=== PATIENT | male | born 1960 | race African-American/Black ===

== ENCOUNTER 2021-05-20 15:01 | Inpatient (IN) ==
[2021-05-20] MEDS ORDERED: MORPHINE 2 MG/1 ML SYRINGE IV STA (15:20)
[2021-05-20] MEDS ORDERED: NITROGLYCERIN 2% OINT 1 INCH/GM PACK TOP STA (15:20)
[2021-05-20] MEDS ORDERED: ALBUTEROL 2.5 MG/3 ML NEB RESP TX STA (15:51)
[2021-05-20 16:23] LABS: ABG Base Excess -15.5 MMOL/L (-2.5-2.5); ABG HCO3 12.4 MMOL/L (20-26); ABG Oxygen Saturation 95.4 % (95-100); ABG PO2 92.9 MM HG (80-95); ABG TCO2 10.9 MMOL/L (23-27)
[2021-05-20 16:29] LABS: ABG PH 7.203 (7.35-7.45)
[2021-05-20] MEDS ORDERED: FUROSEMIDE 100 MG/10 ML VIAL ONE (16:47)
[2021-05-20] MEDS ORDERED: ETOMIDATE 20 MG/10 ML VIAL IV ONE ×2 (16:52→17:26)
[2021-05-20] MEDS ORDERED: ROCURONIUM 100 MG/10 ML VIAL IV ONE ×3 (16:53→17:27)
[2021-05-20] MEDS ORDERED: SUCCINYLCHOLINE 200 MG/10 ML VIAL ONE (16:53)
[2021-05-20] MEDS ORDERED: FUROSEMIDE INJ 160 MG in SODIUM CHLORIDE 0.9% 50 ML IV STA (17:06)
[2021-05-20 17:07] LABS: Calcium 7.2 MG/DL (8.5-10.1); Osmolality,Calculated 304.2 MOS/KG (273-304)
[2021-05-20] MEDS ORDERED: ALBUTEROL 2.5 MG/3 ML NEB RESP TX PRN (17:07)
[2021-05-20] MEDS ORDERED: ONDANSETRON 4 MG/2 ML VIAL IV PRN (17:07)
[2021-05-20 17:21] LABS: Potassium 5.8 MMOL/L (3.5-5.1)
[2021-05-20 17:22] LABS: Barbiturates Screen,Urine Negative (Negative); Benzodiazepines Screen,Urine Negative (Negative); Cannabinoid Screen,Urine Positive (Negative); Opiate Screen,Urine Positive (Negative); Phencyclidine Screen,Urine Negative (Negative)
[2021-05-20] MEDS ORDERED: SODIUM BICARBONATE 50 MEQ/50 ML VIAL IV ONE ×3 (17:30→19:39)
[2021-05-20] MEDS ORDERED: GLUCAGON 1 MG VIAL IM PRN (17:32)
[2021-05-20] MEDS ORDERED: hydrALAZINE 20 MG/1 ML VIAL IV PRN (17:36)
[2021-05-20] MEDS ORDERED: DEXTROSE 50% 25 GM/50 ML SYRINGE IV PRN (17:36)
[2021-05-20] MEDS: INSULIN LISPRO 100 UNIT/ML SUBCUT SCH (18:00)
[2021-05-20] MEDS: HEPARIN 5,000 UNIT/1 ML VIAL SUBCUT SCH (18:01)
[2021-05-20] MEDS: PANTOPRAZOLE 40 MG VIAL IV SCH (18:01)
[2021-05-20 18:15] LABS: Basophils % 0.1 % (0.0-0.8); Hematocrit 23.6 VOL% (42.0-52.0); Hemoglobin 7.7 GM/DL (14.0-18.0); Immature Granulocytes % 1.1 %; Immature Granulocytes Absolute 0.16 #; Lymphocytes # 0.5 10*3/uL (1.4-4.0); Lymphocytes % 3.5 % (21.2-54.2); Mean Corpuscular HGB Conc 32.6 GM/DL (32-36); Mean Corpuscular Volume 94.8 FL (87-102); Mean Platelet Volume 10.3 FL (9.6-12.0); Monocytes % 2.4 % (1.7-12.7); Neutrophils % 92.9 % (38.7-73.9); Platelet Count 156 T/CUMM (130-400); Red Blood Count 2.49 MC/CUMM (3.8-5.5); Red Cell Distribution Width 13.2 % (9.3-17.3); White Blood Count 13.9 T/CUMM (4-12)
[2021-05-20 18:19] LABS: Lymphocytes 3 % (20-55); Macrocytosis 1+; Segmented Neutrophils 94 % (50-85); Total Cells Counted 100
[2021-05-20 18:20] LABS: Basophilic Stippling 1+; Polychromasia Few; Toxic Granulation 1+
[2021-05-20 18:21] LABS: Platelet Estimate Normal
[2021-05-20 18:42] LABS: Allen Test Positive; Pt O2 Delivery Device Ventilator
[2021-05-20 18:43] LABS: ABG Base Excess -13.7 MMOL/L (-2.5-2.5); ABG HCO3 16.1 MMOL/L (20-26); ABG Oxygen Saturation 97.8 % (95-100); ABG PCO2 59.2 MM HG (35-48); ABG PO2 167.9 MM HG (80-95); ABG TCO2 17.9 MMOL/L (23-27)
[2021-05-20 18:45] LABS: ABG PH 7.052 (7.35-7.45)
[2021-05-20] MEDS ORDERED: SODIUM POLYSTYRENE SULFATE 15 GM/60 ML BOTTLE PO ONE (19:18)
[2021-05-20 19:21] LABS: Bilirubin,Urine Negative (Negative); Blood, Urine Moderate mg/dL (Negative); Glucose,Urine (UA) 50 mg/dL (Negative); Hyaline Casts,Urine 1 /LPF (0-3); Ketones,Urine 5 mg/dL (Negative); Mucus,Urine Occasional /LPF (Occasional); Nitrite,Urine Negative (Negative); Protein,Urine >=500 MG/DL; RBC,Urine 13 /HPF (0-4); Squamous Epithelial Cell,Urine Occasional /HPF (0-10); Urine Appearance Slightly Hazy (Clear); Urine Color Yellow (Yellow); Urine Specific Gravity 1.013 (1.001-1.035); Urine Urobilinogen < 2.0 EU/DL (0.2-1.0)
[2021-05-20 19:41] LABS: Hepatitis B Core IgM Quant 0.12 Index; Hepatitis B Surface Ag Quant < 0.10 Index; Hepatitis B Surface Ag Result Non-Reactive (NonReactive); Hepatitis C Virus Ab Quant > 11.00 Index; Hepatitis C Virus Ab Result Reactive (NonReactive)
[2021-05-20 20:27] LABS: ABG Base Excess -10.4 MMOL/L (-2.5-2.5); ABG HCO3 16.1 MMOL/L (20-26); ABG Oxygen Saturation 99.2 % (95-100); ABG PCO2 57.2 MM HG (35-48); ABG TCO2 18.3 MMOL/L (23-27)
[2021-05-20 20:28] LABS: ABG PH 7.124 (7.35-7.45)
[2021-05-20] MEDS: ATORVASTATIN 40 MG TABLET PO SCH (20:55)
[2021-05-20 21:17] LABS: Calcium 7.2 MG/DL (8.5-10.1); Potassium 5.4 MMOL/L (3.5-5.1)
[2021-05-21] MEDS: INSULIN LISPRO 100 UNIT/ML SUBCUT SCH ×5 (00:23→23:43)
[2021-05-21 01:20] LABS: ABG Base Excess -6.9 MMOL/L (-2.5-2.5); ABG HCO3 18.7 MMOL/L (20-26); ABG PCO2 36.1 MM HG (35-48); ABG TCO2 17.7 MMOL/L (23-27)
[2021-05-21 01:54] LABS: INR 1.1; PT Patient Result 12.2 SECS (10.5-12.0)
[2021-05-21] MEDS: HEPARIN 5,000 UNIT/1 ML VIAL SUBCUT SCH ×3 (02:48→18:10)
[2021-05-21 03:51] LABS: Basophils % 0.1 % (0.0-0.8); Hematocrit 18.6 VOL% (42.0-52.0); Immature Granulocytes % 0.7 %; Immature Granulocytes Absolute 0.06 #; Lymphocytes # 0.9 10*3/uL (1.4-4.0); Lymphocytes % 9.6 % (21.2-54.2); Mean Corpuscular HGB Conc 33.3 GM/DL (32-36); Mean Corpuscular Volume 94.4 FL (87-102); Mean Platelet Volume 10.2 FL (9.6-12.0); Monocytes % 5.4 % (1.7-12.7); Neutrophils % 84.2 % (38.7-73.9); Platelet Count 139 T/CUMM (130-400); Red Blood Count 1.97 MC/CUMM (3.8-5.5); Red Cell Distribution Width 13.2 % (9.3-17.3); White Blood Count 8.9 T/CUMM (4-12)
[2021-05-21 03:53] LABS: Hemoglobin 6.2 GM/DL (14.0-18.0)
[2021-05-21 04:11] LABS: Calcium 7.2 MG/DL (8.5-10.1); Osmolality,Calculated 314.4 MOS/KG (273-304); Potassium 4.6 MMOL/L (3.5-5.1); Risk Ratio 2.13; VLDL Cholesterol 26.4 MG/DL
[2021-05-21 04:20] LABS: % Iron Saturation 8.7 % (18-50)
[2021-05-21 04:26] LABS: Albumin 2.2 G/DL (3.4-5.0); Bilirubin,Direct 0.22 MG/DL (0.0-0.20); Bilirubin,Indirect 0.5 MG/DL (0.0-1.0); Bilirubin,Total 0.7 MG/DL (0.20-1.00); Thyroid Stimulating Hormone 1.6 uIU/ml (0.358-3.74); Total Protein 6.3 G/DL (6.4-8.2)
[2021-05-21] MEDS: LEVOTHYROXINE 50 MCG TABLET PO SCH (06:18)
[2021-05-21] MEDS ORDERED: SODIUM CHLORIDE 0.9% 1,000 ML IV PRN (08:32)
[2021-05-21] MEDS ORDERED: INFLUENZA VIRUS VACCINE 0.5 ML SYRINGE IM ONE (09:00)
[2021-05-21] MEDS ORDERED: SODIUM ZIRCONIUM CYCLOSILICATE 10 GM PACK PO SCH (09:00)
[2021-05-21] MEDS ORDERED: amLODIPine 10 MG TABLET PO SCH (09:00)
[2021-05-21] MEDS ORDERED: HEPARIN 10,000 UNIT/10 ML VIAL IV PRN (14:15)
[2021-05-21] MEDS: PANTOPRAZOLE 40 MG VIAL IV SCH (18:10)
[2021-05-21] MEDS: ATORVASTATIN 40 MG TABLET PO SCH (20:49)
[2021-05-22] MEDS: HEPARIN 5,000 UNIT/1 ML VIAL SUBCUT SCH ×3 (02:52→17:27)
[2021-05-22 03:48] LABS: ABG Base Excess -3.1 MMOL/L (-2.5-2.5); ABG HCO3 21.8 MMOL/L (20-26); ABG Oxygen Saturation 99.5 % (95-100); ABG PCO2 37.2 MM HG (35-48); ABG PH 7.373 (7.35-7.45)
[2021-05-22 05:09] LABS: Basophils % 0.2 % (0.0-0.8); Eosinophils # 0.1 10*3/uL (0.0-0.87); Eosinophils % 0.4 % (0.00-10.9); Hematocrit 25.9 VOL% (42.0-52.0); Immature Granulocytes % 0.4 %; Immature Granulocytes Absolute 0.05 #; Lymphocytes # 1.9 10*3/uL (1.4-4.0); Lymphocytes % 16.7 % (21.2-54.2); Mean Corpuscular HGB Conc 33.2 GM/DL (32-36); Mean Corpuscular Volume 91.8 FL (87-102); Monocytes % 7.5 % (1.7-12.7); Neutrophils % 74.8 % (38.7-73.9); Platelet Count 181 T/CUMM (130-400); Red Cell Distribution Width 13.5 % (9.3-17.3); White Blood Count 11.4 T/CUMM (4-12)
[2021-05-22 05:11] LABS: Hemoglobin 8.6 GM/DL (14.0-18.0); Red Blood Count 2.82 MC/CUMM (3.8-5.5)
[2021-05-22 05:31] LABS: Calcium 7.5 MG/DL (8.5-10.1); Potassium 4.4 MMOL/L (3.5-5.1)
[2021-05-22] MEDS: INSULIN LISPRO 100 UNIT/ML SUBCUT SCH (05:40)
[2021-05-22] MEDS: LEVOTHYROXINE 50 MCG TABLET PO SCH (06:11)
[2021-05-22] MEDS: PANTOPRAZOLE 40 MG TABLET PO SCH (09:38)
[2021-05-22] MEDS: lisinopriL 5 MG TABLET PO SCH (09:38)
[2021-05-22] MEDS: carvediloL 12.5 MG TABLET PO SCH ×2 (09:38→20:27)
[2021-05-22] MEDS ORDERED: LIDOCAINE 1%/EPI INJ 20 ML VIAL ONE (10:17)
[2021-05-22] MEDS ORDERED: BUPIVACAINE MPF 0.25% 30 ML VIAL ONE (10:17)
[2021-05-22] MEDS: ATORVASTATIN 40 MG TABLET PO SCH (20:27)
[2021-05-23] MEDS: HEPARIN 5,000 UNIT/1 ML VIAL SUBCUT SCH ×3 (01:05→17:43)
[2021-05-23 04:47] LABS: Basophils % 0.2 % (0.0-0.8); Eosinophils # 0.1 10*3/uL (0.0-0.87); Eosinophils % 1.5 % (0.00-10.9); Hematocrit 26.3 VOL% (42.0-52.0); Hemoglobin 8.6 GM/DL (14.0-18.0); Immature Granulocytes % 0.3 %; Immature Granulocytes Absolute 0.03 #; Lymphocytes # 1.9 10*3/uL (1.4-4.0); Lymphocytes % 20.8 % (21.2-54.2); Mean Corpuscular HGB Conc 32.7 GM/DL (32-36); Neutrophils % 68.2 % (38.7-73.9); Platelet Count 163 T/CUMM (130-400); Red Blood Count 2.86 MC/CUMM (3.8-5.5); Red Cell Distribution Width 13.2 % (9.3-17.3); White Blood Count 9.2 T/CUMM (4-12)
[2021-05-23 05:17] LABS: Calcium 7.7 MG/DL (8.5-10.1); Osmolality,Calculated 295.8 MOS/KG (273-304)
[2021-05-23] MEDS: LEVOTHYROXINE 50 MCG TABLET PO SCH (06:08)
[2021-05-23] MEDS ORDERED: BUPIVACAINE 0.5% 50 ML VIAL ONE (08:05)
[2021-05-23] MEDS ORDERED: LIDOCAINE 1%/EPI INJ 20 ML VIAL ONE (08:06)
[2021-05-23] MEDS ORDERED: LIDOCAINE 2% 5 ML VIAL ONE (08:44)
[2021-05-23] MEDS ORDERED: propofoL 200 MG/20 ML VIAL IV ONE (08:44)
[2021-05-23] MEDS ORDERED: SODIUM CHLORIDE 0.9% 100 ML IV ONE (08:44)
[2021-05-23] MEDS ORDERED: ONDANSETRON 4 MG/2 ML VIAL ONE (08:44)
[2021-05-23] MEDS ORDERED: TISSUE ADHESIVE 1 EACH APPLICATOR TOP ONE (10:31)
[2021-05-23] MEDS ORDERED: ETOMIDATE 40 MG/20 ML VIAL IV ONE (10:42)
[2021-05-23] MEDS: carvediloL 12.5 MG TABLET PO SCH ×2 (12:20→21:00)
[2021-05-23] MEDS: lisinopriL 5 MG TABLET PO SCH (12:20)
[2021-05-23] MEDS: PANTOPRAZOLE 40 MG TABLET PO SCH (12:20)
[2021-05-23] MEDS ORDERED: EPOETIN ALFA-EPBX 2,000 UNIT/ML VIAL IV PRN (13:09)
[2021-05-23] MEDS ORDERED: SODIUM CHLORIDE 0.9% IV SCH (13:30)
[2021-05-23] MEDS ORDERED: IRON SUCROSE 100 MG/5 ML VIAL IV SCH (13:30)
[2021-05-23] MEDS ORDERED: [UNRECOGNIZED DRUG - OTHER] IV SCH (13:30)
[2021-05-23] MEDS ORDERED: ACETAMINOPHEN 325 MG TABLET PO PRN (20:12)
[2021-05-23] MEDS: ATORVASTATIN 40 MG TABLET PO SCH (21:00)
[2021-05-24] MEDS: HEPARIN 5,000 UNIT/1 ML VIAL SUBCUT SCH ×3 (00:13→17:03)
[2021-05-24] MEDS: LEVOTHYROXINE 50 MCG TABLET PO SCH (05:38)
[2021-05-24 05:48] LABS: Basophils % 0.4 % (0.0-0.8); Eosinophils # 0.2 10*3/uL (0.0-0.87); Eosinophils % 2.4 % (0.00-10.9); Hematocrit 26.9 VOL% (42.0-52.0); Hemoglobin 9.1 GM/DL (14.0-18.0); Immature Granulocytes % 0.7 %; Immature Granulocytes Absolute 0.06 #; Lymphocytes # 1.7 10*3/uL (1.4-4.0); Lymphocytes % 18.9 % (21.2-54.2); Mean Corpuscular HGB Conc 33.8 GM/DL (32-36); Mean Corpuscular Volume 93.1 FL (87-102); Mean Platelet Volume 10.2 FL (9.6-12.0); Monocytes % 10.5 % (1.7-12.7); Neutrophils % 67.1 % (38.7-73.9); Platelet Count 164 T/CUMM (130-400); Red Blood Count 2.89 MC/CUMM (3.8-5.5); White Blood Count 9.2 T/CUMM (4-12)
[2021-05-24 06:06] LABS: Calcium 8.2 MG/DL (8.5-10.1); Osmolality,Calculated 280.1 MOS/KG (273-304); Potassium 3.9 MMOL/L (3.5-5.1)
[2021-05-24] MEDS: carvediloL 12.5 MG TABLET PO SCH ×2 (11:24→21:18)
[2021-05-24] MEDS: lisinopriL 5 MG TABLET PO SCH (11:24)
[2021-05-24] MEDS: PANTOPRAZOLE 40 MG TABLET PO SCH (11:24)
[2021-05-24] MEDS: ATORVASTATIN 40 MG TABLET PO SCH (21:18)
[2021-05-24] MEDS: lisinopriL 10 MG TABLET PO SCH (21:18)
[2021-05-25] MEDS: HEPARIN 5,000 UNIT/1 ML VIAL SUBCUT SCH ×3 (00:35→16:05)
[2021-05-25 05:18] LABS: Basophils % 0.4 % (0.0-0.8); Eosinophils # 0.3 10*3/uL (0.0-0.87); Eosinophils % 4.1 % (0.00-10.9); Hematocrit 26.6 VOL% (42.0-52.0); Hemoglobin 8.8 GM/DL (14.0-18.0); Immature Granulocytes % 0.8 %; Immature Granulocytes Absolute 0.06 #; Lymphocytes # 1.9 10*3/uL (1.4-4.0); Lymphocytes % 23.8 % (21.2-54.2); Mean Corpuscular HGB Conc 33.1 GM/DL (32-36); Mean Corpuscular Volume 92.7 FL (87-102); Mean Platelet Volume 10.4 FL (9.6-12.0); Monocytes % 13.3 % (1.7-12.7); Neutrophils % 57.6 % (38.7-73.9); Platelet Count 168 T/CUMM (130-400); Red Blood Count 2.87 MC/CUMM (3.8-5.5); Red Cell Distribution Width 12.9 % (9.3-17.3); White Blood Count 7.9 T/CUMM (4-12)
[2021-05-25 05:41] LABS: Calcium 8.2 MG/DL (8.5-10.1); Osmolality,Calculated 282.2 MOS/KG (273-304)
[2021-05-25] MEDS: LEVOTHYROXINE 50 MCG TABLET PO SCH (06:45)
[2021-05-25] MEDS ORDERED: FERRIC GLUCONATE COMPLEX 125 MG in SODIUM CHLORIDE 0.9% 100 ML IV SCH (08:00)
[2021-05-25] MEDS: lisinopriL 10 MG TABLET PO SCH ×2 (08:36→22:24)
[2021-05-25] MEDS: carvediloL 12.5 MG TABLET PO SCH ×2 (08:36→22:25)
[2021-05-25] MEDS: PANTOPRAZOLE 40 MG TABLET PO SCH (08:36)
[2021-05-25] MEDS: ATORVASTATIN 40 MG TABLET PO SCH (22:24)
[2021-05-26] MEDS: HEPARIN 5,000 UNIT/1 ML VIAL SUBCUT SCH ×3 (00:55→18:14)
[2021-05-26] MEDS: LEVOTHYROXINE 50 MCG TABLET PO SCH (06:28)
[2021-05-26] MEDS: lisinopriL 10 MG TABLET PO SCH (08:38)
[2021-05-26] MEDS: carvediloL 12.5 MG TABLET PO SCH ×2 (08:38→22:48)
[2021-05-26] MEDS: PANTOPRAZOLE 40 MG TABLET PO SCH (08:38)
[2021-05-26] MEDS: lisinopriL 20 MG TABLET PO SCH (22:48)
[2021-05-26] MEDS: ATORVASTATIN 40 MG TABLET PO SCH (22:48)
[2021-05-27] MEDS: HEPARIN 5,000 UNIT/1 ML VIAL SUBCUT SCH ×3 (01:11→17:36)
[2021-05-27] MEDS: LEVOTHYROXINE 50 MCG TABLET PO SCH (06:56)
[2021-05-27] MEDS: PANTOPRAZOLE 40 MG TABLET PO SCH (09:53)
[2021-05-27] MEDS: carvediloL 12.5 MG TABLET PO SCH ×2 (09:54→21:46)
[2021-05-27] MEDS: lisinopriL 20 MG TABLET PO SCH ×2 (11:00→21:46)
[2021-05-27] MEDS: ATORVASTATIN 40 MG TABLET PO SCH (21:46)
[2021-05-28] MEDS: HEPARIN 5,000 UNIT/1 ML VIAL SUBCUT SCH ×3 (01:19→16:40)
[2021-05-28] MEDS: LEVOTHYROXINE 50 MCG TABLET PO SCH ×2 (05:26→05:49)
[2021-05-28] MEDS: carvediloL 12.5 MG TABLET PO SCH ×2 (13:20→22:24)
[2021-05-28] MEDS: lisinopriL 20 MG TABLET PO SCH ×2 (13:20→22:24)
[2021-05-28] MEDS: PANTOPRAZOLE 40 MG TABLET PO SCH (13:20)
[2021-05-28] MEDS: ATORVASTATIN 40 MG TABLET PO SCH (22:24)
[2021-05-29] MEDS: HEPARIN 5,000 UNIT/1 ML VIAL SUBCUT SCH ×3 (01:45→17:39)
[2021-05-29 04:54] LABS: Basophils % 0.4 % (0.0-0.8); Eosinophils # 0.3 10*3/uL (0.0-0.87); Eosinophils % 3.4 % (0.00-10.9); Hematocrit 25.4 VOL% (42.0-52.0); Hemoglobin 8.3 GM/DL (14.0-18.0); Immature Granulocytes % 2.3 %; Immature Granulocytes Absolute 0.19 #; Lymphocytes # 2.2 10*3/uL (1.4-4.0); Mean Corpuscular HGB Conc 32.7 GM/DL (32-36); Mean Corpuscular Volume 92.4 FL (87-102); Mean Platelet Volume 10.7 FL (9.6-12.0); Monocytes % 14.2 % (1.7-12.7); NRBC # 0.02 10*3/uL; Neutrophils % 53.7 % (38.7-73.9); Platelet Count 169 T/CUMM (130-400); Red Blood Count 2.75 MC/CUMM (3.8-5.5); Red Cell Distribution Width 13.3 % (9.3-17.3); White Blood Count 8.4 T/CUMM (4-12)
[2021-05-29 05:16] LABS: Calcium 8.1 MG/DL (8.5-10.1); Osmolality,Calculated 268.1 MOS/KG (273-304); Potassium 4.1 MMOL/L (3.5-5.1)
[2021-05-29] MEDS: LEVOTHYROXINE 50 MCG TABLET PO SCH (05:56)
[2021-05-29] MEDS: lisinopriL 20 MG TABLET PO SCH ×2 (09:54→22:08)
[2021-05-29] MEDS: PANTOPRAZOLE 40 MG TABLET PO SCH (09:54)
[2021-05-29] MEDS: carvediloL 12.5 MG TABLET PO SCH ×2 (09:55→22:08)
[2021-05-29] MEDS ORDERED: SODIUM CHLORIDE 0.9% 500 ML IV ONE (11:21)
[2021-05-29] MEDS ORDERED: TOLVAPTAN 15 MG TABLET PO ONE (13:00)
[2021-05-29 14:16] LABS: Hepatitis B Surface Ab Result Reactive (NonReactive)
[2021-05-29] MEDS: ATORVASTATIN 40 MG TABLET PO SCH (22:08)
[2021-05-30] MEDS: HEPARIN 5,000 UNIT/1 ML VIAL SUBCUT SCH (01:33)
[2021-05-30 05:12] LABS: Basophils % 0.3 % (0.0-0.8); Eosinophils # 0.2 10*3/uL (0.0-0.87); Eosinophils % 2.5 % (0.00-10.9); Hematocrit 24.3 VOL% (42.0-52.0); Hemoglobin 7.8 GM/DL (14.0-18.0); Immature Granulocytes Absolute 0.15 #; Lymphocytes # 1.9 10*3/uL (1.4-4.0); Mean Corpuscular HGB Conc 32.1 GM/DL (32-36); Mean Corpuscular Volume 93.1 FL (87-102); Mean Platelet Volume 10.8 FL (9.6-12.0); Neutrophils % 57.2 % (38.7-73.9); Platelet Count 174 T/CUMM (130-400); Red Blood Count 2.61 MC/CUMM (3.8-5.5); Red Cell Distribution Width 13.4 % (9.3-17.3); White Blood Count 7.5 T/CUMM (4-12)
[2021-05-30 05:48] LABS: Calcium 7.8 MG/DL (8.5-10.1); Osmolality,Calculated 281.2 MOS/KG (273-304); Potassium 4.4 MMOL/L (3.5-5.1)
[2021-05-30] MEDS: LEVOTHYROXINE 50 MCG TABLET PO SCH (05:56)
[2021-05-30] MEDS ORDERED: EPOETIN ALFA-EPBX 2,000 UNIT/ML VIAL SUBCUT ONE (08:30)
[2021-05-30] MEDS: PANTOPRAZOLE 40 MG TABLET PO SCH (11:15)
[2021-05-30] MEDS: carvediloL 12.5 MG TABLET PO SCH (11:15)
[2021-05-30] MEDS: lisinopriL 20 MG TABLET PO SCH (11:15)
[2021-05-30 11:28] VITALS: BP 145/64
== END 2021-05-30 14:31 | disposition home or self-care (01) | DRG 673 ==
LOC: N.ED 15:01 → N.ICU 17:07 → SUATTDRO 17:07 → N.ICU 17:28 → N.5E 05-22 15:44
PROVIDERS: ADMIT Internal Medicine; ATTEND Internal Medicine

== ENCOUNTER 2021-07-02 01:21 | Inpatient (IN) ==
[2021-07-02 02:54] LABS: ABG Base Excess -4.2 MMOL/L (-2.5-2.5); ABG HCO3 20.7 MMOL/L (20-26); ABG Oxygen Saturation 78.3 % (95-100); ABG PCO2 32.5 MM HG (35-48); ABG PH 7.398 (7.35-7.45); ABG PO2 49.9 MM HG (80-95); ABG TCO2 19.1 MMOL/L (23-27)
[2021-07-02 03:27] LABS: Basophils % 0.2 % (0.0-0.8); Hematocrit 21.4 VOL% (42.0-52.0); Hemoglobin 6.7 GM/DL (14.0-18.0); Immature Granulocytes % 0.6 %; Immature Granulocytes Absolute 0.08 #; Lymphocytes # 0.5 10*3/uL (1.4-4.0); Lymphocytes % 3.8 % (21.2-54.2); Mean Corpuscular HGB Conc 31.3 GM/DL (32-36); Mean Corpuscular Volume 93.9 FL (87-102); Mean Platelet Volume 12.8 FL (9.6-12.0); Neutrophils % 93.4 % (38.7-73.9); Red Blood Count 2.28 MC/CUMM (3.8-5.5); Red Cell Distribution Width 16.4 % (9.3-17.3); White Blood Count 12.7 T/CUMM (4-12)
[2021-07-02 03:34] LABS: Bilirubin,Urine Negative (Negative); Blood, Urine Moderate mg/dL (Negative); Glucose,Urine (UA) 50 mg/dL (Negative); Ketones,Urine Negative (Negative); Nitrite,Urine Negative (Negative); Protein,Urine >=500 MG/DL; RBC,Urine 166 /HPF (0-4); Squamous Epithelial Cell,Urine Occasional /HPF (0-10); Urine Appearance CLOUDY (Clear); Urine Color Amber (Yellow); Urine Specific Gravity 1.017 (1.001-1.035); Urine Urobilinogen < 2.0 EU/DL (<2.0)
[2021-07-02] MEDS ORDERED: cefTRIAXone 1,000 MG in SODIUM CHLORIDE 0.9% 100 ML IV STA (03:35)
[2021-07-02 03:38] LABS: INR 1.4; PT Patient Result 15.1 SECS (10.5-12.0); Partial Thromboplastin Time 34.7 SECS (23.8-32.1); Platelet Count 98 T/CUMM (130-400)
[2021-07-02 03:46] LABS: Band Neutrophils 3 % (0-10); Hypochromia 1+; Lymphocytes 2 % (20-55); Microcytosis 1+; Ovalocytes Slight; Segmented Neutrophils 92 % (50-85); Total Cells Counted 100
[2021-07-02] MEDS ORDERED: LACTATED RINGERS 500 ML IV ONE (03:46)
[2021-07-02 03:59] LABS: Albumin 1.5 G/DL (3.4-5.0); Bilirubin,Total 1.8 MG/DL (0.20-1.00); Osmolality,Calculated 332.1 MOS/KG (273-304); Total Protein 6.5 G/DL (6.4-8.2)
[2021-07-02 04:08] LABS: Barbiturates Screen,Urine Negative (Negative); Benzodiazepines Screen,Urine Positive (Negative); Cannabinoid Screen,Urine Negative (Negative); Opiate Screen,Urine Positive (Negative); Phencyclidine Screen,Urine Negative (Negative)
[2021-07-02 04:12] LABS: Potassium 6.3 MMOL/L (3.5-5.1)
[2021-07-02] MEDS ORDERED: INSULIN REGULAR 100 UNIT/ML IV ONE (04:13)
[2021-07-02] MEDS ORDERED: SODIUM BICARBONATE 50 MEQ/50 ML VIAL IV STA (04:14)
[2021-07-02] MEDS ORDERED: INSULIN REGULAR 10 UNIT, CALCIUM GLUCONATE 1,000 MG in DEXTROSE 10% 250 ML IV ONE (05:00)
[2021-07-02] MEDS ORDERED: GLUCAGON 1 MG VIAL IM PRN (05:09)
[2021-07-02] MEDS ORDERED: ONDANSETRON 4 MG/2 ML VIAL IV PRN (05:09)
[2021-07-02] MEDS ORDERED: SODIUM CHLORIDE 0.9% 1,000 ML IV PRN (05:20)
[2021-07-02] MEDS ORDERED: INSULIN REGULAR 100 UNIT/ML SUBCUT SCH (06:00)
[2021-07-02 06:26] LABS: ABG Base Excess -3.7 MMOL/L (-2.5-2.5); ABG HCO3 19.9 MMOL/L (20-26); ABG Oxygen Saturation 96.2 % (95-100); ABG PCO2 29.5 MM HG (35-48); ABG PH 7.447 (7.35-7.45); ABG PO2 97.7 MM HG (80-95); ABG TCO2 20.8 MMOL/L (23-27)
[2021-07-02] MEDS ORDERED: DEXTROSE 50% 25 GM/50 ML VIAL IV PRN (08:22)
[2021-07-02] MEDS ORDERED: POTASSIUM CHLORIDE RIDER 10 MEQ/100 ML PREMIX IV PRN (08:22)
[2021-07-02] MEDS ORDERED: DEXTROSE 50% 25 GM/50 ML SYRINGE IV PRN (08:22)
[2021-07-02] MEDS ORDERED: SODIUM CHLORIDE 0.9% 1,000 ML IV ONE (08:22)
[2021-07-02] MEDS ORDERED: MAGNESIUM SULF RIDER 4 GM/100 ML PREMIX IV PRN (08:22)
[2021-07-02] MEDS ORDERED: SODIUM PHOSPHATE INJ 20 MMOL in SODIUM CHLORIDE 0.9% 250 ML IV PRN (08:22)
[2021-07-02] MEDS ORDERED: MAGNESIUM SULF RIDER 2 GM/50 ML PREMIX IV PRN (08:22)
[2021-07-02 08:55] LABS: Osmolality,Calculated 339.8 MOS/KG (273-304); Potassium 5.7 MMOL/L (3.5-5.1)
[2021-07-02] MEDS: PIPERACILLIN/TAZOBACTAM 3,375 MG in SODIUM CHLORIDE 0.9% 100 ML IV SCH ×2 (08:56→18:02)
[2021-07-02] MEDS: PANTOPRAZOLE 40 MG VIAL IV SCH (10:30)
[2021-07-02] MEDS ORDERED: VANCOMYCIN INJ 1,500 MG in SODIUM CHLORIDE 0.9% 500 ML IV ONE (11:00)
[2021-07-02] MEDS ORDERED: VANCOMYCIN INJ 1,250 MG in SODIUM CHLORIDE 0.9% 250 ML IV ONE (11:00)
[2021-07-02] MEDS: INSULIN REGULAR DRIP 100 ML IV SCH (11:09)
[2021-07-02] MEDS ORDERED: SODIUM CHLORIDE 0.9% 1,000 ML IV STA (11:10)
[2021-07-02 14:09] LABS: Hepatitis B Surface Ag Quant < 0.10 Index; Hepatitis B Surface Ag Result Non-Reactive (NonReactive)
[2021-07-02] MEDS ORDERED: PNEUMOCOCCAL VACCINE (13 VALENT) 0.5 ML SYRINGE IM ONE (15:20)
[2021-07-02 15:33] LABS: Osmolality,Calculated 328.8 MOS/KG (273-304); Potassium 5.6 MMOL/L (3.5-5.1)
[2021-07-02 17:58] LABS: Osmolality,Calculated 332.8 MOS/KG (273-304)
[2021-07-02] MEDS: SODIUM CHLORIDE 0.45% 1,000 ML IV SCH (18:01)
[2021-07-02] MEDS: DEXTROSE 5% NACL 0.45% 1,000 ML IV SCH (19:21)
[2021-07-02 21:00] LABS: Osmolality,Calculated 295.5 MOS/KG (273-304); Potassium 3.2 MMOL/L (3.5-5.1)
[2021-07-02 22:46] LABS: ABG Base Excess 1.9 MMOL/L (-2.5-2.5); ABG HCO3 25.9 MMOL/L (20-26); ABG Oxygen Saturation 85.9 % (95-100); ABG PCO2 36.6 MM HG (35-48); ABG PH 7.454 (7.35-7.45); ABG PO2 54.3 MM HG (80-95); ABG TCO2 23.8 MMOL/L (23-27); Allen Test Positive
[2021-07-02] MEDS ORDERED: MORPHINE 2 MG/1 ML SYRINGE IV ONE (23:17)
[2021-07-03 01:11] LABS: Calcium 7.9 MG/DL (8.5-10.1); Osmolality,Calculated 297.7 MOS/KG (273-304); Potassium 3.8 MMOL/L (3.5-5.1)
[2021-07-03] MEDS: SODIUM CHLORIDE 0.45% 1,000 ML IV SCH (01:33)
[2021-07-03] MEDS: DEXTROSE 5% NACL 0.45% 1,000 ML IV SCH ×2 (04:21→12:18)
[2021-07-03 04:36] LABS: Basophils % 0.1 % (0.0-0.8); Hematocrit 25.7 VOL% (42.0-52.0); Immature Granulocytes % 0.8 %; Immature Granulocytes Absolute 0.07 #; Lymphocytes # 0.4 10*3/uL (1.4-4.0); Lymphocytes % 4.3 % (21.2-54.2); Mean Corpuscular HGB Conc 31.1 GM/DL (32-36); Mean Corpuscular Volume 93.8 FL (87-102); Monocytes % 2.7 % (1.7-12.7); Neutrophils % 92.1 % (38.7-73.9); Platelet Count 50 T/CUMM (130-400); Red Blood Count 2.74 MC/CUMM (3.8-5.5); Red Cell Distribution Width 15.9 % (9.3-17.3); White Blood Count 8.9 T/CUMM (4-12)
[2021-07-03 04:48] LABS: Osmolality,Calculated 300.5 MOS/KG (273-304); Potassium 4.2 MMOL/L (3.5-5.1)
[2021-07-03 04:57] LABS: Band Neutrophils 1 % (0-10); Lymphocytes 2 % (20-55); Segmented Neutrophils 94 % (50-85); Total Cells Counted 100
[2021-07-03 04:58] LABS: Hypochromia 1+; Microcytosis 1+; Platelet Estimate Decreased
[2021-07-03 05:26] LABS: ABG Base Excess -0.4 MMOL/L (-2.5-2.5); ABG HCO3 24.1 MMOL/L (20-26); ABG Oxygen Saturation 98.5 % (95-100); ABG PCO2 41.8 MM HG (35-48); ABG TCO2 23.1 MMOL/L (23-27)
[2021-07-03 05:27] LABS: Allen Test Positive; Pt O2 Delivery Device Simple Mask
[2021-07-03] MEDS ORDERED: cefTRIAXone 1,000 MG in SODIUM CHLORIDE 0.9% 100 ML IV SCH (05:30)
[2021-07-03] MEDS: PIPERACILLIN/TAZOBACTAM 3,375 MG in SODIUM CHLORIDE 0.9% 100 ML IV SCH (06:17)
[2021-07-03] MEDS: INSULIN REGULAR DRIP 100 ML IV SCH ×2 (06:26→09:47)
[2021-07-03] MEDS: DEXTROSE 50% 25 GM/50 ML SYRINGE IV PRN (07:27)
[2021-07-03] MEDS: PANTOPRAZOLE 40 MG VIAL IV SCH (09:13)
[2021-07-03] MEDS: RIFAMPIN INJ 600 MG in SODIUM CHLORIDE 0.9% 100 ML IV SCH (10:27)
[2021-07-03] MEDS: MENTHOL/ZINC OXIDE OINT 71 GM JAR TOP SCH ×2 (12:18→21:17)
[2021-07-03] MEDS ORDERED: PHENYLEPHRINE INJ 160 MG in SODIUM CHLORIDE 0.9% 234 ML IV PRN (13:39)
[2021-07-03] MEDS ORDERED: NOREPINEPHRINE 4 MG/4 ML VIAL IV ONE (13:58)
[2021-07-03] MEDS: NOREPINEPHRINE 16 MG in SODIUM CHLORIDE 0.9% 234 ML IV PRN (14:12)
[2021-07-03] MEDS: INSULIN LISPRO 100 UNIT/ML SUBCUT SCH ×3 (14:57→20:31)
[2021-07-03] MEDS ORDERED: ETOMIDATE 20 MG/10 ML VIAL IV ONE ×2 (15:13→15:25)
[2021-07-03] MEDS ORDERED: SUCCINYLCHOLINE 200 MG/10 ML VIAL ONE (15:14)
[2021-07-03] MEDS ORDERED: SODIUM CHLORIDE 0.9% 250 ML IV ONE (15:24)
[2021-07-03] MEDS ORDERED: SUCCINYLCHOLINE 200 MG/10 ML VIAL IV ONE (15:25)
[2021-07-03] MEDS: ALBUMIN 25% 12.5 GM/50 ML VIAL IV SCH (15:25)
[2021-07-03] MEDS: MIDAZOLAM 100 MG in SODIUM CHLORIDE 0.9% 80 ML IV PRN (16:23)
[2021-07-03 16:24] VITALS: BP 87/43
[2021-07-03] MEDS ORDERED: VANCOMYCIN INJ 500 MG in SODIUM CHLORIDE 0.9% 100 ML IV PRN (17:00)
[2021-07-03 17:45] LABS: ABG Base Excess -3.8 MMOL/L (-2.5-2.5); ABG HCO3 21.3 MMOL/L (20-26); ABG Oxygen Saturation 99.6 % (95-100); ABG PCO2 41.4 MM HG (35-48); ABG PH 7.331 (7.35-7.45); ABG TCO2 20.6 MMOL/L (23-27); Pt O2 Delivery Device Ventilator
[2021-07-03] MEDS: LORATADINE 10 MG TABLET PO SCH (18:15)
[2021-07-03] MEDS: MORPHINE 2 MG/1 ML SYRINGE IV PRN (20:02)
[2021-07-04] MEDS: INSULIN LISPRO 100 UNIT/ML SUBCUT SCH ×6 (00:15→20:18)
[2021-07-04] MEDS: ALBUMIN 25% 12.5 GM/50 ML VIAL IV SCH ×3 (00:16→15:57)
[2021-07-04 03:44] LABS: ABG Base Excess -1.3 MMOL/L (-2.5-2.5); ABG HCO3 23.4 MMOL/L (20-26); ABG Oxygen Saturation 99.3 % (95-100); ABG PCO2 38.6 MM HG (35-48); ABG PH 7.391 (7.35-7.45); ABG TCO2 21.8 MMOL/L (23-27)
[2021-07-04 04:09] LABS: Basophils % 0.1 % (0.0-0.8); Hematocrit 25.2 VOL% (42.0-52.0); Hemoglobin 7.8 GM/DL (14.0-18.0); Immature Granulocytes % 0.5 %; Immature Granulocytes Absolute 0.04 #; Lymphocytes # 0.5 10*3/uL (1.4-4.0); Lymphocytes % 6.1 % (21.2-54.2); Mean Corpuscular Volume 95.5 FL (87-102); Mean Platelet Volume 13.7 FL (9.6-12.0); Monocytes % 2.8 % (1.7-12.7); Neutrophils % 90.5 % (38.7-73.9); Platelet Count 52 T/CUMM (130-400); Red Blood Count 2.64 MC/CUMM (3.8-5.5); Red Cell Distribution Width 16.5 % (9.3-17.3); White Blood Count 7.4 T/CUMM (4-12)
[2021-07-04] MEDS: DEXTROSE 50% 25 GM/50 ML SYRINGE IV PRN (04:14)
[2021-07-04] MEDS ORDERED: ACETAMINOPHEN 325 MG/10.15 ML UDCUP ONE (04:18)
[2021-07-04 04:26] LABS: Band Neutrophils 2 % (0-10); Hypochromia 1+; Lymphocytes 4 % (20-55); Microcytosis 1+; Platelet Estimate Decreased; Segmented Neutrophils 92 % (50-85); Total Cells Counted 100
[2021-07-04 04:32] LABS: Albumin 1.7 G/DL (3.4-5.0); Bilirubin,Total 2.3 MG/DL (0.20-1.00); Calcium 7.9 MG/DL (8.5-10.1); Osmolality,Calculated 308.4 MOS/KG (273-304); Potassium 5.2 MMOL/L (3.5-5.1); Total Protein 6.4 G/DL (6.4-8.2)
[2021-07-04] MEDS: ACETAMINOPHEN 325 MG/10.15 ML UDCUP PO PRN ×2 (04:34→20:18)
[2021-07-04] MEDS: MORPHINE 2 MG/1 ML SYRINGE IV PRN (05:24)
[2021-07-04] MEDS: NOREPINEPHRINE 16 MG in SODIUM CHLORIDE 0.9% 234 ML IV PRN ×2 (06:32→21:40)
[2021-07-04] MEDS: MIDAZOLAM 100 MG in SODIUM CHLORIDE 0.9% 80 ML IV PRN ×2 (07:31→22:22)
[2021-07-04] MEDS: LORATADINE 10 MG TABLET PO SCH (08:49)
[2021-07-04] MEDS: LEVOTHYROXINE 100 MCG TABLET PO SCH (08:49)
[2021-07-04] MEDS: PANTOPRAZOLE 40 MG VIAL IV SCH (08:49)
[2021-07-04] MEDS: MENTHOL/ZINC OXIDE OINT 71 GM JAR TOP SCH ×2 (09:24→20:17)
[2021-07-04] MEDS: RIFAMPIN INJ 600 MG in SODIUM CHLORIDE 0.9% 100 ML IV SCH (11:10)
[2021-07-05] MEDS: ALBUMIN 25% 12.5 GM/50 ML VIAL IV SCH ×4 (00:19→22:54)
[2021-07-05] MEDS: INSULIN LISPRO 100 UNIT/ML SUBCUT SCH ×6 (01:00→20:19)
[2021-07-05] MEDS: MORPHINE 2 MG/1 ML SYRINGE IV PRN (01:07)
[2021-07-05 04:47] LABS: Hematocrit 24.1 VOL% (42.0-52.0); Hemoglobin 7.2 GM/DL (14.0-18.0); Immature Granulocytes % 0.8 %; Immature Granulocytes Absolute 0.05 #; Lymphocytes # 0.4 10*3/uL (1.4-4.0); Lymphocytes % 6.8 % (21.2-54.2); Mean Corpuscular HGB Conc 29.9 GM/DL (32-36); Mean Corpuscular Volume 97.2 FL (87-102); Monocytes % 2.1 % (1.7-12.7); Neutrophils % 90.3 % (38.7-73.9); Platelet Count 44 T/CUMM (130-400); Red Blood Count 2.48 MC/CUMM (3.8-5.5); Red Cell Distribution Width 16.7 % (9.3-17.3); White Blood Count 6.2 T/CUMM (4-12)
[2021-07-05 04:54] LABS: ABG Base Excess -4.7 MMOL/L (-2.5-2.5); ABG HCO3 21.2 MMOL/L (20-26); ABG Oxygen Saturation 97.3 % (95-100); ABG PCO2 42.8 MM HG (35-48); ABG PH 7.313 (7.35-7.45); ABG PO2 106.5 MM HG (80-95); ABG TCO2 22.5 MMOL/L (23-27)
[2021-07-05 05:04] LABS: Albumin 1.7 G/DL (3.4-5.0); Bilirubin,Total 2.8 MG/DL (0.20-1.00); Calcium 8.1 MG/DL (8.5-10.1); Osmolality,Calculated 315.7 MOS/KG (273-304); Potassium 4.9 MMOL/L (3.5-5.1); Total Protein 5.9 G/DL (6.4-8.2)
[2021-07-05 05:12] LABS: Hypochromia 1+; Lymphocytes 5 % (20-55); Microcytosis 1+; Platelet Estimate Decreased; Segmented Neutrophils 95 % (50-85); Total Cells Counted 100
[2021-07-05] MEDS ORDERED: ROCURONIUM 50 MG/5 ML VIAL IV ONE (09:04)
[2021-07-05] MEDS ORDERED: HEPARIN 5,000 UNIT/1 ML VIAL ONE (09:04)
[2021-07-05] MEDS: MENTHOL/ZINC OXIDE OINT 71 GM JAR TOP SCH ×2 (10:49→20:19)
[2021-07-05] MEDS: LORATADINE 10 MG TABLET PO SCH (10:49)
[2021-07-05] MEDS: LEVOTHYROXINE 100 MCG TABLET PO SCH (10:49)
[2021-07-05] MEDS: PANTOPRAZOLE 40 MG VIAL IV SCH (10:50)
[2021-07-05] MEDS: RIFAMPIN INJ 600 MG in SODIUM CHLORIDE 0.9% 100 ML IV SCH (11:38)
[2021-07-05] MEDS: MIDAZOLAM 100 MG in SODIUM CHLORIDE 0.9% 80 ML IV PRN (12:25)
[2021-07-05] MEDS: fentaNYL INJ 1,250 MCG in SODIUM CHLORIDE 0.9% 225 ML IV PRN (14:30)
[2021-07-05] MEDS: NOREPINEPHRINE 16 MG in SODIUM CHLORIDE 0.9% 234 ML IV PRN (20:40)
[2021-07-05] MEDS: ACETAMINOPHEN 325 MG/10.15 ML UDCUP PO PRN (22:54)
[2021-07-06] MEDS: INSULIN LISPRO 100 UNIT/ML SUBCUT SCH ×6 (00:42→21:43)
[2021-07-06] MEDS: MIDAZOLAM 100 MG in SODIUM CHLORIDE 0.9% 80 ML IV PRN ×2 (01:40→16:38)
[2021-07-06 04:05] LABS: ABG Base Excess -0.6 MMOL/L (-2.5-2.5); ABG HCO3 23.9 MMOL/L (20-26); ABG Oxygen Saturation 98.5 % (95-100); ABG PCO2 54.4 MM HG (35-48); ABG PH 7.294 (7.35-7.45); ABG TCO2 24.8 MMOL/L (23-27); Allen Test Positive; Pt O2 Delivery Device Ventilator
[2021-07-06 04:55] LABS: Hematocrit 23.5 VOL% (42.0-52.0); Immature Granulocytes % 0.8 %; Immature Granulocytes Absolute 0.05 #; Lymphocytes # 0.5 10*3/uL (1.4-4.0); Lymphocytes % 8.8 % (21.2-54.2); Mean Corpuscular HGB Conc 29.8 GM/DL (32-36); Mean Corpuscular Volume 98.7 FL (87-102); Monocytes % 2.5 % (1.7-12.7); Neutrophils % 87.9 % (38.7-73.9); Red Blood Count 2.38 MC/CUMM (3.8-5.5); Red Cell Distribution Width 17.2 % (9.3-17.3)
[2021-07-06 04:59] LABS: Alanine Aminotransferase < 6 U/L (16-61); Albumin 1.8 G/DL (3.4-5.0); Alkaline Phosphatase 141 U/L (45-117); Aspartate Amino Transferase 39 U/L (0-37); Blood Urea Nitrogen 93 MG/DL (7-18); Calcium 7.9 MG/DL (8.5-10.1); Carbon Dioxide 27 MMOL/L (21-32); Estimated Glom Filtration Rate 9 ML/MIN; Glucose 121 MG/DL (74-106); Osmolality,Calculated 304.7 MOS/KG (273-304); Platelet Count 32 T/CUMM (130-400); Potassium 4.2 MMOL/L (3.5-5.1); Sodium 138 MMOL/L (136-145)
[2021-07-06 05:08] LABS: Band Neutrophils 4 % (0-10); Hypochromia 1+; Lymphocytes 9 % (20-55); Microcytosis 1+; Ovalocytes Slight; Platelet Estimate Decreased; Segmented Neutrophils 85 % (50-85); Total Cells Counted 100
[2021-07-06] MEDS: ALBUMIN 25% 12.5 GM/50 ML VIAL IV SCH (08:57)
[2021-07-06] MEDS: fentaNYL INJ 1,250 MCG in SODIUM CHLORIDE 0.9% 225 ML IV PRN (08:57)
[2021-07-06] MEDS: LORATADINE 10 MG TABLET PO SCH (08:59)
[2021-07-06] MEDS: PANTOPRAZOLE 40 MG VIAL IV SCH (08:59)
[2021-07-06] MEDS: LEVOTHYROXINE 100 MCG TABLET PO SCH (08:59)
[2021-07-06] MEDS: MENTHOL/ZINC OXIDE OINT 71 GM JAR TOP SCH ×2 (09:00→21:43)
[2021-07-06] MEDS: RIFAMPIN INJ 600 MG in SODIUM CHLORIDE 0.9% 100 ML IV SCH (10:57)
[2021-07-06] MEDS: SODIUM HYPOCHLORITE 0.25% IRRIG 473 ML BOTTLE TOP SCH (11:37)
[2021-07-06] MEDS: NOREPINEPHRINE 16 MG in SODIUM CHLORIDE 0.9% 234 ML IV PRN (13:51)
[2021-07-07] MEDS: INSULIN LISPRO 100 UNIT/ML SUBCUT SCH ×6 (00:19→21:04)
[2021-07-07 04:32] LABS: ABG Base Excess -2.3 MMOL/L (-2.5-2.5); ABG HCO3 22.5 MMOL/L (20-26); ABG Oxygen Saturation 97.7 % (95-100); ABG PCO2 51.6 MM HG (35-48); ABG PH 7.285 (7.35-7.45); ABG TCO2 23.4 MMOL/L (23-27)
[2021-07-07 04:48] LABS: Alanine Aminotransferase < 6 U/L (16-61); Albumin 1.5 G/DL (3.4-5.0); Alkaline Phosphatase 244 U/L (45-117); Aspartate Amino Transferase 35 U/L (0-37); Blood Urea Nitrogen 113 MG/DL (7-18); Calcium 8.1 MG/DL (8.5-10.1); Carbon Dioxide 24 MMOL/L (21-32); Estimated Glom Filtration Rate 7 ML/MIN; Glucose 213 MG/DL (74-106); Osmolality,Calculated 318.5 MOS/KG (273-304); Potassium 4.7 MMOL/L (3.5-5.1); Sodium 139 MMOL/L (136-145); Total Protein 5.7 G/DL (6.4-8.2)
[2021-07-07] MEDS: ACETAMINOPHEN 325 MG/10.15 ML UDCUP PO PRN (05:18)
[2021-07-07 05:26] LABS: Basophils % 0.2 % (0.0-0.8); Hematocrit 23.3 VOL% (42.0-52.0); Hemoglobin 6.9 GM/DL (14.0-18.0); Immature Granulocytes % 0.8 %; Immature Granulocytes Absolute 0.05 #; Lymphocytes # 0.7 10*3/uL (1.4-4.0); Lymphocytes % 10.5 % (21.2-54.2); Mean Corpuscular HGB Conc 29.6 GM/DL (32-36); Mean Corpuscular Volume 98.7 FL (87-102); Mean Platelet Volume 14.1 FL (9.6-12.0); Monocytes % 3.5 % (1.7-12.7); Red Blood Count 2.36 MC/CUMM (3.8-5.5); Red Cell Distribution Width 17.5 % (9.3-17.3); White Blood Count 6.3 T/CUMM (4-12)
[2021-07-07] MEDS: fentaNYL INJ 1,250 MCG in SODIUM CHLORIDE 0.9% 225 ML IV PRN ×2 (05:26→22:57)
[2021-07-07 05:27] LABS: Platelet Count 38 T/CUMM (130-400)
[2021-07-07 05:41] LABS: Lymphocytes 7 % (20-55); Platelet Estimate Decreased; Segmented Neutrophils 92 % (50-85); Total Cells Counted 100
[2021-07-07 05:42] LABS: Hypochromia 2+; Microcytosis 1+
[2021-07-07] MEDS: MIDAZOLAM 100 MG in SODIUM CHLORIDE 0.9% 80 ML IV PRN (07:00)
[2021-07-07] MEDS: NOREPINEPHRINE 16 MG in SODIUM CHLORIDE 0.9% 234 ML IV PRN ×2 (07:21→21:05)
[2021-07-07] MEDS ORDERED: SODIUM CHLORIDE 0.9% 1,000 ML IV PRN (08:01)
[2021-07-07] MEDS: LORATADINE 10 MG TABLET PO SCH (08:08)
[2021-07-07] MEDS: PANTOPRAZOLE 40 MG VIAL IV SCH (08:09)
[2021-07-07] MEDS: MENTHOL/ZINC OXIDE OINT 71 GM JAR TOP SCH ×2 (08:10→21:04)
[2021-07-07] MEDS: SODIUM HYPOCHLORITE 0.25% IRRIG 473 ML BOTTLE TOP SCH (08:10)
[2021-07-07] MEDS: LEVOTHYROXINE 100 MCG TABLET PO SCH (08:10)
[2021-07-07] MEDS: RIFAMPIN INJ 600 MG in SODIUM CHLORIDE 0.9% 100 ML IV SCH (09:38)
[2021-07-07] MEDS ORDERED: DIGOXIN 0.5 MG/2 ML AMP IV ONE (14:28)
[2021-07-07] MEDS ORDERED: DIGOXIN 0.5 MG/2 ML AMP ONE (14:30)
[2021-07-07] MEDS ORDERED: METOPROLOL TARTRATE 5 MG/5 ML VIAL IV ONE ×2 (17:53→17:57)
[2021-07-08] MEDS: INSULIN LISPRO 100 UNIT/ML SUBCUT SCH ×6 (00:20→20:34)
[2021-07-08] MEDS: MIDAZOLAM 100 MG in SODIUM CHLORIDE 0.9% 80 ML IV PRN ×2 (00:35→15:48)
[2021-07-08 02:45] LABS: ABG Base Excess -2.5 MMOL/L (-2.5-2.5); ABG HCO3 22.3 MMOL/L (20-26); ABG Oxygen Saturation 99.2 % (95-100); ABG PCO2 44.8 MM HG (35-48); ABG PH 7.328 (7.35-7.45); ABG TCO2 21.3 MMOL/L (23-27)
[2021-07-08 04:51] LABS: Basophils % 0.1 % (0.0-0.8); Hematocrit 30.5 VOL% (42.0-52.0); Immature Granulocytes % 1.1 %; Immature Granulocytes Absolute 0.09 #; Lymphocytes # 0.9 10*3/uL (1.4-4.0); Lymphocytes % 10.3 % (21.2-54.2); Mean Corpuscular HGB Conc 30.8 GM/DL (32-36); Mean Corpuscular Volume 96.5 FL (87-102); Mean Platelet Volume 12.4 FL (9.6-12.0); Neutrophils % 85.5 % (38.7-73.9)
[2021-07-08 04:54] LABS: Hemoglobin 9.4 GM/DL (14.0-18.0); Red Blood Count 3.16 MC/CUMM (3.8-5.5); White Blood Count 8.3 T/CUMM (4-12)
[2021-07-08 04:55] LABS: Platelet Count 33 T/CUMM (130-400)
[2021-07-08 05:05] LABS: Osmolality,Calculated 311.3 MOS/KG (273-304); Potassium 4.6 MMOL/L (3.5-5.1)
[2021-07-08 05:11] LABS: Hypochromia 1+; Lymphocytes 9 % (20-55); Microcytosis 1+; Platelet Estimate Decreased; Segmented Neutrophils 86 % (50-85); Total Cells Counted 100
[2021-07-08] MEDS: LORATADINE 10 MG TABLET PO SCH (08:23)
[2021-07-08] MEDS: PANTOPRAZOLE 40 MG VIAL IV SCH (08:23)
[2021-07-08] MEDS: LEVOTHYROXINE 100 MCG TABLET PO SCH (08:23)
[2021-07-08] MEDS: MENTHOL/ZINC OXIDE OINT 71 GM JAR TOP SCH ×2 (08:24→20:35)
[2021-07-08] MEDS: SODIUM HYPOCHLORITE 0.25% IRRIG 473 ML BOTTLE TOP SCH (08:24)
[2021-07-08] MEDS: AMPICILLIN INJ 500 MG in SODIUM CHLORIDE 0.9% 100 ML IV SCH ×3 (10:32→20:35)
[2021-07-08] MEDS: RIFAMPIN INJ 600 MG in SODIUM CHLORIDE 0.9% 100 ML IV SCH (10:32)
[2021-07-08] MEDS: carvediloL 12.5 MG TABLET PO SCH ×2 (15:47→20:34)
[2021-07-08] MEDS: fentaNYL INJ 1,250 MCG in SODIUM CHLORIDE 0.9% 225 ML IV PRN (16:08)
== END 2021-07-08 21:25 | disposition hospice, home (50) | DRG 314 ==
LOC: SUATTDRO → N.ED 01:21 → N.EDINP 05:09 → SUATTDRO 05:09 → N.CC 14:15
PROVIDERS: ADMIT Internal Medicine; ATTEND Internal Medicine